=== PATIENT | female | born 1995 | race Caucasian/White ===

== ENCOUNTER 2017-11-03 09:59 | Outpatient (CLI) | payer OTHER | END 2017-11-04 18:33 | disposition home or self-care (01) | LOC: LAB 09:59 | DX: D50.9 Iron deficiency anemia, unspecified (principal); E03.9 Hypothyroidism, unspecified; D68.9 Coagulation defect, unspecified; E83.51 Hypocalcemia; N83.209 Unspecified ovarian cyst, unspecified side ==